=== PATIENT | male | born 1990 | race Caucasian/White ===

== ENCOUNTER 2017-03-07 09:36 | Emergency (ER) | payer OTHER ==
[~2017-03-07] VITALS: Ht 177.8 cm; Wt 105.6 kg
[2017-03-07 09:40] VITALS: TEMP 36.8; Ht 177.8 cm; Wt 105.6 kg
[2017-03-07] MEDS ORDERED: SERT-234 PO (10:13)
[2017-03-07] MEDS ORDERED: TRAZ1TAB52 PO (10:13)
[2017-03-07] MEDS ORDERED: PRAZ1CAP10 PO (10:13)
[2017-03-07] MEDS ORDERED: BUPR200T2 PO (10:13)
[2017-03-07 10:29] VITALS: BP 133/74; PULSE 78; O2SAT 97
--- NOTE | 2017-03-07 16:46 | EMERGENCY ROOM VISIT NOTE ---
History Report prepared by Javier: Lidia Figueredo Under the Supervision of: Dr. Tomas Mack M.D. First contact with patient: 10:10 Chief Complaint: OTHER COMPLAINT Stated Complaint: HALLUCINATIONS History of Present Illness The patient is a 26 year old male who presents to the Emergency Room with complaints of persistent visual hallucinations today. The patient's grandmother states that the patient has not taken his medication for the past five days stating that the patient ran out. He did, however, take his medications yesterday. She states that the patient has a history of Autism and depression, but denies any history of bipolar or schizophrenia. The patient's grandmother notes that the patient is on Trazodone, Prazosin, Zoloft, and Wellbutrin. She states that the patient called the police and said that someone was at his window and that his door was melting. The patient's grandmother notes that the police recommended that the patient is brought to the emergency department for further treatment and evaluation. She states that the patient follows with a therapist and notes that she cannot get in to stalk to her today. The patient states that he just wants his "body looked at" and wants to leave. The patient denies any drug or alcohol use. He states that he has not been sleeping for the past several days and was likely just hallucinating because of the lack of sleep. He thinks he was partially dreaming when it all happened. Source of History: patient, family (grandmother) History Limited By: poor cooperation Onset: four days Position: other (global) Quality: other (visual hallucinations) Timing: other (persistent) Note: Associated Symptoms: didn't take medication for five days. Review of Systems See HPI and ROS are limited secondary to lack of cooperation. Past Medical & Surgical Medical Problems: (1) Autism (2) Depression Family History No pertinent family history stated. Social History Smoking Status: Never Smoker Marital Status: single Housing Status: lives alone Occupation Status: unemployed Current/Historical Medications Scheduled Bupropion (Wellbutrin Sr), 200 MG PO QAM Prazosin Hcl (Prazosin), 1 MG PO HS Sertraline (Zoloft), 200 MG PO DAILY Trazodone Hcl (Desyrel), 150 MG PO HS Allergies Coded Allergies: No Known Allergies (Unverified , 03/07/17) Physical Exam Vital Signs Date Time Temp Pulse Resp B/P (MAP) Pulse Ox O2 Delivery O2 Flow Rate FiO2 03/07/17 10:29 78 18 133/74 97 03/07/17 09:40 36.8 61 18 126/56 95 Room Air Physical Exam Constitutional: Vital signs reviewed. Eyes: Pupils are equal round reactive to light. Conjunctiva are noninjected. ENT: Pharynx is clear without erythema or exudate. Mucous membranes are moist. Neck supple without meningeal signs. Respiratory: Clear to auscultation bilaterally. Breath sounds are equal bilaterally. Cardiovascular: Regular rate and rhythm. No rubs or gallops. GI: Soft, nondistended and nontender. Bowel sounds are present. Musculoskeletal: No peripheral edema. No lower extremity tenderness. Integumentary: No cyanosis. Neurological: The patient is awake and alert. Cranial nerves II-XII are intact. Motor is 5 out of 5 all extremities. Sensation is intact to light touch all extremities. Normal speech. No pronator drift. Psychiatric: Guarded affect. No pressured speech. No word salad. No neologisms. Medical Decision & Procedures ED Course 1011: The patient was evaluated in room B2. A complete history and physical exam was performed. 1018: I spoke to the patient's grandmother at this time. I discussed the treatment plan and she verbalized complete understanding and agreement. The patient is ready for discharge. Medical Decision This is a 26-year-old male who presents with visual hallucinations today. Differential diagnosis includes psychosis, insomnia, metabolic derangement, medication withdrawal. I did perform a limited focused review of portions of the patient's old chart on the electronic medical record. The patient has had no recent pertinent visits to this hospital. Blood Pressure Screening: Patient was found to have normal blood pressure on screening and does not require follow-up. Medication Reconciliation: I attest that I have personally reviewed the patient' s current medication list. I did evaluate the patient as noted above. The patient is not very cooperative. He was brought here by his grandmother because he called police due to visual hallucinations. The patient states that this was only because he has not taken his medications and has not been getting much sleep. He does not want any evaluation other than a physical exam. He denies any current hallucinations. He did restart his medications. He does have mental health issues but there is no cause for involuntary commitment for evaluation. I did explain this to the patient's grandmother and she stated that she would have them follow up with his counselor and psychiatrist. The patient was discharged in good condition. Impression Primary Impression: Visual hallucinations Additional Impression: Noncompliance with medication regimen Scribe Attestation The scribe's documentation has been prepared under my direct and personally reviewed by me in its entirety. I confirm that the note above accurately reflects all work, treatment, procedures, and medical decision making performed by me. Departure Information Dispostion Home / Self-Care Referrals No Doctor, Assigned (PCP) Forms HOME CARE DOCUMENTATION FORM, IMPORTANT VISIT INFORMATION, WORK / SCHOOL INSTRUCTIONS Patient Instructions My [facility] Additional Instructions You have been examined and treated today on an emergency basis only. This is not a substitute for, or an effort to provide, complete comprehensive medical care. It is impossible to recognize and treat all injuries or illnesses in a single emergency department visit. It is therefore important that you follow up closely with your physician and counselor/psychiatrist. Call as soon as possible for an appointment. Return for worsening symptoms or if you develop headache, thoughts of hurting yourself or others or any other concerning symptoms. Problem Qualifiers
== END 2017-03-07 10:29 | disposition home or self-care (01) ==
LOC: C.EDB 09:37
DX: R44.1 Visual hallucinations (principal); Z91.14 Patient's other noncompliance with medication regimen; F84.0 Autistic disorder; F32.9 Major depressive disorder, single episode, unspecified; Z79.899 Other long term (current) drug therapy

== ENCOUNTER 2019-09-20 22:07 | Inpatient (IN) ==
[2019-09-20 22:49] LABS: Basophils # (auto) 0.02 K/uL (0-0.2); Basophils % (auto) 0.2 %; Eosinophils % (auto) 0.9 %; Hematocrit (blood only) 43.7 % (42-52); Hemoglobin 14.8 g/dL (14.0-18.0); Immature Granulocytes # (auto) 0.03 K/uL (0.00-0.02); Immature Granulocytes % (auto) 0.3 %; Lymphocytes # (auto) 2.82 K/uL (1.2-3.4); Lymphocytes % (auto) 25.9 %; Mean Corpuscular Hemoglobin 28.8 pg (25-34); Mean Corpuscular Hgb Conc 33.9 g/dL (32-36); Mean Platelet Volume 9.9 fL (7.4-10.4); Monocytes # (auto) 0.63 K/uL (0.11-0.59); Monocytes % (auto) 5.8 %; Neutrophils # (auto) 7.29 K/uL (1.4-6.5); Neutrophils % (auto) 66.9 %; Platelet Count 383 K/uL (130-400); RDW Coefficient of Variation 14.1 % (11.5-14.5); RDW Standard Deviation 43.8 fL (36.4-46.3); Red Blood Count 5.14 M/uL (4.7-6.1); White Blood Count 10.89 K/uL (4.8-10.8)
[2019-09-20 22:59] LABS: Appearance Urine Clear (Clear); Bilirubin Urine Negative (Negative); Blood Urine Negative (Negative); Color Urine Yellow; Glucose Urine UA Negative (Negative); Ketones Urine Negative (Negative); Leukocyte Esterase Urine Negative (Negative); Nitrite Urine Negative (Negative); Protein Urine Negative (Negative); Specific Gravity Urine 1.022 (1.000-1.030); Urobilinogen Urine Negative (Negative)
[2019-09-20 23:09] LABS: Albumin Level 3.8 gm/dl (3.4-5.0); BUN Creatinine Ratio 14.4 (10-20); Calcium 9.2 mg/dl (8.5-10.1); Creatinine Clr Calc Pharmacy 141.9 ml/min; Est GFR (African American) 126.5; Est GFR (Non-African American) 109.1; Potassium 3.7 mmol/L (3.5-5.1)
[2019-09-20 23:19] LABS: Albumin Globulin Ratio 0.8 (0.9-2); Bilirubin,Total 0.4 mg/dl (0.2-1); Globulin 4.7 gm/dl (2.5-4.0); Thyroid Stimulating Hormone 1.69 uIu/ml (0.300-4.500); Total Protein 8.5 gm/dl (6.4-8.2)
[2019-09-20] MEDS ORDERED: LORazepam 1 MG TAB SL STA (23:21)
[2019-09-20 23:27] LABS: Amphetamines+Metham, Urine Pos (Neg); Barbiturates, Urine Neg (Neg); Benzodiazepine, Urine Neg (Neg); Cocaine, Urine Neg (Neg); MDMA (Ecstacy), Urine Neg (Neg); Methadone, Urine Neg (Neg); Opiate, Urine Neg (Neg); Phencyclidine, Urine Neg (Neg)
[2019-09-20 23:47] LABS: Acetaminophen < 2 ug/ml (10-30); Salicylate 4.1 mg/dl (2.8-20)
--- NOTE | 2019-09-21 03:55 | Emergency Department Note ---
Entered by Aaron Clay acting as a scribe for Ricco West MD ED Provider Note Name: Mauricio Hurst Age: 29 Arrives Via: EMS Informant: Patient CC: Mental health evaluation HPI: The patient is a 29 year old male who presents to the emergency department with a request for a mental health evaluation occurring tonight. The patient states that he was recently released from [place]. He notes that a person up the street is planning his murder, and he reports that he can barely move from his couch out of fear. The patient states that this individual is hacking his internet, and he notes that he is very paranoid and scared. He reports that he has been taking his medication as usual. The patient states that he smokes cigarettes and uses marijuana, but he notes that he has not drank alcohol in years. He reports that his mom has a history of ADD and he states that his dad has a history of hepatitis. ROS: See above HPI for pertinent positives & negatives. A total of 10 systems reviewed and were otherwise negative. Past Medical History: Depression, autism Past Surgical History: None Family History: Mother ADD, Father hepatitis Social History: Smokes cigarettes, uses marijuana, does not drink alcohol Home Medications: Zoloft, dextroamphetamine-amphetamine Allergies: None Physical: Vitals: BP 131/74, Pulse 130, Resp 20, Temp 98.4 F, O2 Sat 99 Exam: GENERAL: Patient is anxious appearing, mildly agitated. EYES: No scleral icterus, unremarkable pupils. ENT: Mucous membranes moist, no nasal congestion. NECK: No masses appreciated, no meningismus, trachea is midline. RESPIRATORY: No dyspnea. Clear to auscultation and equal bilaterally. No wheeze, no rhonchi. CARDIOVASCULAR: Regular rate and rhythm. No murmurs, rubs, gallops appreciated. GASTROINTESTINAL: Abdomen soft, non-tender, no peritonitis. Bowel sounds pos itive. No masses appreciated. BACK: No midline tenderness, no CVA tenderness EXTREMITIES: Normal motion all extremities, no cyanosis, no edema. NEUROLOGIC: Alert and oriented, no acute motor or sensory deficits, no focal weakness, cranial nerves grossly intact. SKIN: No rash, no jaundice, no diaphoresis. Psych: Anxious, agitated, depressed, states people are after him, exhibits paranoid behavior, denies SI and HI. ED Course: Prior Medical Record, Triage/Nursing Notes, Medications, Allergies reviewed by Me 2312: The patient was evaluated in room A8. A complete history and physical exam was performed. 0313: I rechecked the patient. He is sleeping. 0354: Upon reevaluation, the patient is stable. I discussed the findings and the treatment plan with the patient. He expresses agreement and understanding. The patient will be transferred to [address] [place] [address] for further management and treatment. Vital Signs: reviewed and remarkable for Tachy on arrival Labs: Reviewed and remarkable for Marijuana in Drug Urine Interventions: Ativan 1mg PO Blood pressure: Elevated - Avis to be situational. Disposition: Admitted to [address] [place] [address] Differential: Mood Disorder, Overdose, Infectious, Electrolyte Abnormality, Cardiac, Hepatic, Endocrine, Toxicologic, Neurologic, amongst other pathologies Entertained. Medical Decision Makin yr old male with long psychiatric history arrives with worsening paranoia, not caring for self and requesting admission. He is severely paranoid discussing being followed and bugged. He is exhibiting evidence of not caring for self and I agree needs inpatient admission. Given ativan to help calm him down and medically cleared. Sleeping and no issues. [address] [place] [address] came down and evaluated and accepted him to their facility. Impression: Hallucinations, acute paranoia, anxiety Ricco West MD The scribe's documentation has been prepared under my direction and personally reviewed by me in its entirety. I confirm that the note above accurately reflects all work, treatment, procedures, and medical decision making performed by me. Impression & Plan Hallucinations, Acute anxiety, Acute paranoia Past Med/Surg History Family History (Updated 09/20/19 @ 23:49 by Aaron Clay) Other Family history of attention deficit disorder Family history of hepatitis Social History (Updated 09/20/19 @ 23:49 by Aaron Clay) Preferred Language: Sammarinese Feels Safe at Home: Yes Smoking Status: Current every day smoker Tobacco Type: cigarettes ; Hx Alcohol Use: No Hx Substance Use: Yes substance use type: marijuana Results & Data Vital Signs Vital Signs - 24 hr 09/20/19 22:30 Temperature 36.9 C Temperature Source Oral Pulse Rate 82 Pulse Rhythm Regular Respiratory Rate 20 Respiratory Effort / Characteristics Non-Labored Spontaneous Respiratory Depth Normal Respiratory Pattern Regular Blood Pressure 131/74 Blood Pressure Mean 93 Blood Pressure Position Lying Pulse Oximetry 99 Oxygen Delivery Method Room Air Sepsis Recent Fever Within 48 Hours No Sepsis New/Unexplained Change in Mental Status No Sepsis Action Taken by Nursing No Action Required Home Medications Current Medication List: was personally reviewed by me Laboratory Data Attestation: I reviewed the patient's lab results. Result diagrams: 09/20/19 22:23 09/20/19 22:23 Lab Results 09/20/19 09/20/19 09/20/19 Range/Units 22:23 22:23 22:23 WBC 10.89 H (4.8-10.8) K/uL RBC 5.14 (4.7-6.1) M/uL Hgb 14.8 (14.0-18.0) g/dL Hct 43.7 (42-52) % MCV 85.0 (80-100) fL MCH 28.8 (25-34) pg MCHC 33.9 (32-36) g/dL RDW Std Deviation 43.8 (36.4-46.3) fL RDW Coeff of Chuck 14.1 (11.5-14.5) % Plt Count 383 (130-400) K/uL MPV 9.9 (7.4-10.4) fL Immature Gran % (Auto) 0.3 % Neut % (Auto) 66.9 % Lymph % (Auto) 25.9 % [place] % (Auto) 5.8 % Eos % (Auto) 0.9 % Baso % (Auto) 0.2 % Immature Gran # (Auto) 0.03 H (0.00-0.02) K/uL Neut # (Auto) 7.29 H (1.4-6.5) K/uL Lymph # (Auto) 2.82 (1.2-3.4) K/uL Callahan # (Auto) 0.63 H (0.11-0.59) K/uL Eos # (Auto) 0.10 (0-0.5) K/uL Baso # (Auto) 0.02 (0-0.2) K/uL Sodium 139 (136-145) mmol/L Potassium 3.7 (3.5-5.1) mmol/L Chloride 107 (98-107) mmol/L Carbon Dioxide 27 (21-32) mmol/L Anion Gap 5.0 (3-11) BUN 14 (7-18) mg/dl Creatinine 0.94 (0.6-1.4) mg/dl Est Cr Clr Drug Dosing 141.9 ml/min Est GFR ( Amer) 126.5 Est GFR (Non-Af Amer) 109.1 BUN/Creatinine Ratio 14.4 (10-20) Glucose 85 (70-99) mg/dl Calcium 9.2 (8.5-10.1) mg/dl Total Bilirubin 0.4 (0.2-1) mg/dl AST 12 L (15-37) U/L ALT 24 (12-78) U/L Alkaline Phosphatase 103 (45-117) U/L Total Protein 8.5 H (6.4-8.2) gm/dl Albumin 3.8 (3.4-5.0) gm/dl Globulin 4.7 H (2.5-4.0) gm/dl Albumin/Globulin Ratio 0.8 L (0.9-2) TSH 1.690 (0.300-4.500) uIu/ml Urine Color Urine Appearance (Clear) Urine pH (4.5-7.5) Ur Specific [place] (1.000-1.030) Urine Protein (Negative) Urine Glucose (UA) (Negative) Urine Ketones (Negative) Urine Blood (Negative) Urine Nitrite (Negative) Urine Bilirubin (Negative) Urine Urobilinogen (Negative) Ur Leukocyte Esterase (Negative) Salicylates 4.1 (2.8-20) mg/dl Urine Opiates Screen (Neg) Ur Methadone, Qual (Neg) Acetaminophen < 2 L (10-30) ug/ml Urine Barbiturates (Neg) Ur Phencyclidine (PCP) (Neg) U Amphetamin/Meth Scrn (Neg) MDMA (Ecstasy) Screen (Neg) U Benzodiazepines Scrn (Neg) Ur Cocaine Metabolite (Neg) U Marijuana (THC) Screen (Neg) Ethyl Alcohol mg/dL (0-3) mg/dl 09/20/19 09/20/19 09/20/19 Range/Units 22:23 22:30 22:30 WBC (4.8-10.8) K/uL RBC (4.7-6.1) M/uL Hgb (14.0-18.0) g/dL Hct (42-52) % MCV (80-100) fL MCH (25-34) pg MCHC (32-36) g/dL RDW Std Deviation (36.4-46.3) fL RDW Coeff of Chuck (11.5-14.5) % Plt Count (130-400) K/uL MPV (7.4-10.4) fL Immature Gran % (Auto) % Neut % (Auto) % Lymph % (Auto) % [place] % (Auto) % Eos % (Auto) % Baso % (Auto) % Immature Gran # (Auto) (0.00-0.02) K/uL Neut # (Auto) (1.4-6.5) K/uL Lymph # (Auto) (1.2-3.4) K/uL [place] # (Auto) (0.11-0.59) K/uL Eos # (Auto) (0-0.5) K/uL Baso # (Auto) (0-0.2) K/uL Sodium (136-145) mmol/L Potassium (3.5-5.1) mmol/L Chloride (98-107) mmol/L Carbon Dioxide (21-32) mmol/L Anion Gap (3-11) BUN (7-18) mg/dl Creatinine (0.6-1.4) mg/dl Est Cr Clr Drug Dosing ml/min Est GFR ( Amer) Est GFR (Non-Af Amer) BUN/Creatinine Ratio (10-20) Glucose (70-99) mg/dl Calcium (8.5-10.1) mg/dl Total Bilirubin (0.2-1) mg/dl AST (15-37) U/L ALT (12-78) U/L Alkaline Phosphatase (45-117) U/L Total Protein (6.4-8.2) gm/dl Albumin (3.4-5.0) gm/dl Globulin (2.5-4.0) gm/dl Albumin/Globulin Ratio (0.9-2) TSH (0.300-4.500) uIu/ml Urine Color Yellow Urine Appearance Clear (Clear) Urine pH 7.0 (4.5-7.5) Ur Specific [place] 1.022 (1.000-1.030) Urine Protein Negative (Negative) Urine Glucose (UA) Negative (Negative) Urine Ketones Negative (Negative) Urine Blood Negative (Negative) Urine Nitrite Negative (Negative) Urine Bilirubin Negative (Negative) Urine Urobilinogen Negative (Negative) Ur Leukocyte Esterase Negative (Negative) Salicylates (2.8-20) mg/dl Urine Opiates Screen Neg (Neg) Ur Methadone, Qual Neg (Neg) Acetaminophen (10-30) ug/ml Urine Barbiturates Neg (Neg) Ur Phencyclidine (PCP) Neg (Neg) U Amphetamin/Meth Scrn Pos H (Neg) MDMA (Ecstasy) Screen Neg (Neg) U Benzodiazepines Scrn Neg (Neg) Ur Cocaine Metabolite Neg (Neg) U Marijuana (THC) Screen Pos H (Neg) Ethyl Alcohol mg/dL < 3.0 (0-3) mg/dl Administered Medications Discontinued Medications Lorazepam (Ativan) 1 mg SL NOW STA Stop: 09/20/19 23:22 Last Admin: 09/20/19 23:58 Dose: 1 mg Documented by: [id number] Discharge Plan Visit Data Chief Complaint: Mental Health Evaluation Stated Complaint: [facility] ED Provider: Ricco West Discharge Problem: Hallucinations, Acute anxiety, Acute paranoia Patient Disposition: Transfer Behavioral Health Fac Discharge Instructions Interventions: ED Discharge Assessment Last Done: 09/21/19 04:04 The dayo's documentation has been prepared under my direction and personally reviewed by me in its entirety. I confirm that the note above accurately refl ects all work, treatment, procedures, and medical decision making performed by me.
[2019-09-21] MEDS ORDERED: ACETAMINOPHEN 325 MG TAB PO PRN (04:37)
[2019-09-21] MEDS ORDERED: SODIUM CHLORIDE 0.65% NA SOLN 45 ML (OCEAN) PRN (04:37)
[2019-09-21] MEDS ORDERED: MAGNESIUM HYDROXIDE SUSP 30 ML UDC PO PRN (04:37)
[2019-09-21] MEDS ORDERED: ALUMINUM/MAGNESIUM SUSP 30 ML UDC PO PRN (04:37)
[2019-09-21] MEDS ORDERED: BISMUTH SUBSALICYLATE PER ML OMNICELL CHARGE PO PRN (04:37)
[2019-09-21] MEDS ORDERED: NICOTINE POLACRILEX 2 MG GUM MT PRN (04:38)
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
[2019-09-21] MEDS ORDERED: OLANZapine 5 MG TABLET PO SCH (09:00)
[2019-09-21] MEDS: NICOTINE 14 MG/24 HR PATCH TD SCH (10:34)
[2019-09-21] MEDS: cloNIDine HCL 0.1 MG TAB PO SCH ×3 (10:34→21:22)
[2019-09-21] MEDS: DIVALPROEX DELAY RELEASE 500 MG TAB PO SCH ×2 (12:59→21:21)
[2019-09-21] MEDS ORDERED: haloperidoL 5 MG TAB PO PRN (13:05)
[2019-09-21] MEDS ORDERED: BENZTROPINE MESYLATE 1 MG TAB PO PRN (13:05)
[2019-09-21] MEDS: OLANZapine 5 MG TABLET PO SCH ×2 (17:33→21:22)
[2019-09-22 08:22] LABS: Glucose Fasting 100 mg/dl (70-99)
[2019-09-22 08:28] LABS: Chol HDL Ratio 5; Cholesterol 188 mg/dl (0-200); HDL Cholesterol 36 mg/dl; LDL Cholesterol Calculated 122 mg/dl; Triglycerides 152 mg/dl (0-150); VLDL Cholesterol 30 mg/dl
[2019-09-22] MEDS: DIVALPROEX DELAY RELEASE 500 MG TAB PO SCH ×2 (09:29→21:13)
[2019-09-22] MEDS: cloNIDine HCL 0.1 MG TAB PO SCH ×3 (09:29→21:13)
[2019-09-22] MEDS: NICOTINE 14 MG/24 HR PATCH TD SCH (09:30)
[2019-09-22] MEDS: OLANZapine 5 MG TABLET PO SCH ×3 (09:30→21:14)
--- NOTE | 2019-09-22 12:19 | Psychiatric Progress Note ---
Date of Service September 22, 2019 Impression / Recommendations Impression 29-year-old single male who lives alone in [place], has a history of mental health treatment since about age 12, with numerous past diagnoses including persistent depression, bipolar disorder, psychosis NOS, cannabis abuse, PTSD, ADHD, intellectual disability, and autism spectrum disorder, who has had 3 [id number] hospitalizations at [facility] over the past 2 months and presented to our ER last night by EMS floridly psychotic and fearful that people were stalking and trying to kill him. He states he has been taking medication since his last discharge from [facility] 2 weeks ago (olanzapine, Depakote, and clonidine), although Depakote level was not obtained in the ER to verify this. Depakote level was obtained this morning, and was subtherapeutic at 34. Pt was agreeable with titrating his Depakote to 500mg qAM and 1000mg qHS. The remainder of his home medications have been continued. He reports smoking marijuana and methamphetamine and UDS was positive for both. He lacks insight into his symptoms and believes he is in danger outside of the hospital as others are plotting against him. He remains irritable, but is a bit more cooperative with the assessment. We will need to get collateral information from family members and involve his outpatient supports and treatment providers, as this is his fourth hospitalization in 2 months. Inpatient treatment is medically necessary due to the severity of his symptoms, inability to provide for his own basic needs including health, safety, and nutrition without the care and assistance of others. (1) Psychosis: 09/21 -psychosis NOS. Differential includes primary thought disorder, substance-induced psychosis, and mood disorder with psychosis. -Continue voluntary inpatient treatment, every 15 minute checks for safety. -Encourage participation in groups and therapy. Work on healthy coping skills and discharge safety plan. -Continue medications (just filled on 09/06/[address] Lamb, presumably on discharge from [facility]): clonidine 0.1 mg twice daily at 0900 and 1400 and 0.2 mg at bedtime, and Depakote 500 mg twice daily. Increase olanzapine to 5 mg twice daily and 15 mg at bedtime to target psychosis. -Order Depakote trough level and cholesterol panel/fasting glucose for tomorrow for monitoring on an atypical antipsychotic. -Order haloperidol 5 mg as needed for psychosis, and benztropine 1 mg as needed for EPS. -Hold trazodone as patient reports it was ineffective and he was not taking it. -Expand database with information from family and dependency case manager (has 3 - Neisha, Priscila Amezcua, and CARLOS ALBERTO). -Records reviewed from recent hospitalization at [facility], and outpatient PA at [facility]. -Patient was apparently transitioning to see a physicians clinical nursing assistant at [facility]; wi ll coordinate care with them. -Due to multiple recent hospitalizations, his insurance company is requesting a treatment team meeting. May be beneficial to involve his rep payee as well, whom he states is assigned to the [facility]. 09/22 - Pt agreeable with titration of Depakote to 500mg qAM and 1000mg qHS. Continue remainder of medication regimen unchanged - He continues to verbalize delusional thought content related to individuals hacking his internet and security system - Fasting labs drawn this AM - fasting glucose is mildly elevated at 100; triglycerides are mildly elevated at 152. Other values are WNL - Depakote trough ordered, level was subtherapeutic at 34 (although reliability of medication compliance prior to admission is questioned) (2) Methamphetamine abuse: 09/21 -UDS positive, follow-up on confirmatory results. Patient smoking methamphetamine, which is likely contributing to his psychotic symptoms. He was seen in our ER last month prior to going to [facility], and drug screen was positive for amphetamines, but not methamphetamines. In general stimulants should be avoided due to the risk of worsening his psychosis. (3) Cannabis abuse: 09/21 -patient unable to tolerate intervention/psychoeducation about the risks of substance use due to his psychosis and irritability. We will continue to provide education about the risks of substance use, recommendations for abstinence, and need for substance abuse treatment. -Recovery protocol. (4) Autism: 09/21 -clarify diagnosis/services with outpatient community case manager (5) Idiopathic mild intellectual disability: 09/21 -involve outpatient dependency case manager Inventory Assets Strengths: Has lots of services, was willing to come into the hospital Needs: Abstinence from substances, adherence with outpatient treatment Risk Factors Assessment Male: Yes : Yes Do You Have Access To A Gun?: No Health Problems: No Mental Health Diagnoses: Yes Substance Use Disorders: Yes Previous Attempt: No Previous Psychiatric Hospitalization: Yes Smoker: No Protective Factors Assessment : No Responsible for Young Children: No Employed: No Stable Relationships: No Supportive Family: Yes Interval History Identifying Information RENO OTOOLE is a 29-year-old M who currently lives in [place] alone, has a history of mild ID, autism spectrum disorder, psychosis NOS, persistent depression, PTSD, ADHD, and substance abuse, and was admitted on 09/21/19 03:47 on a 201 voluntary commitment for paranoid delusions. Chief Complaint "I just want you to know that people were hacking my internet and the security system at my house." Review of Systems Notes Constitutional: reports "mental fatigue" Cardiovascular: denied Respiratory: denied Gastrointestinal: denied Neurological: denied Psychiatric: denies symptoms other than stated above Total of at least 10 systems reviewed, pertinent positives as above and in HPI. Sleep Information Total Hours of Sleep: 7.25 Sleep Comments: . Meal Information Percent Meal Consumed - Breakfast: 100 Percent Meal Consumed - Dinner: 100 Nutrition Comment: per meal log Subjective Subjective Patient was seen & assessed and interval progress reviewed with nursing and social work. Staff reports the patient continues to be largely paranoid and anxious. He spent most of the day yesterday in his room. He is scheduled to have a visit from his general community case manager this afternoon, and is scheduled for an intake for blended case management services this morning. Patient was seen today to assess progress since admission. He provides verbal consent to allow Lilia Nunez PA-C to observe today's interaction. He continues to verbalize thoughts that an individual named Colby Caldwell has been hacking into his Internet and security system. He informs this provider that the individual was released from group home about 1 to 2 weeks ago, he had "started to harass me immediately after he got out." Patient gives specific information regarding the ways that this individual and "the [place]hnaz[place]" interact with each other and are trying to harm him. Patient states that he has been experiencing "mental fatigue" since this time due to "having to constantly change my passwords." Patient denies suicidal ideation, but does admit he is frustrated with what this individual has been doing. Reality testing was not attempted, as patient is clearly convinced that this is occurring to him. Results of valproic acid level and fasting labs were reviewed with the patient. He is agreeable with titration of Depakote, as his level is presently subtherapeutic. He maintains that he has been compliant with his medications prior to his hospitalization. Pt denies other needs or concerns at this time. Physical Exam Psychiatric Orientation: alert and + guarded (only superficially cooperative) Apperance: appropriately dressed (casually, in tight t-shirt and shorts) and + disheveled (longhair, standing on-end) Eye Contact: good eye contact Motor Behavior: steady gait and station and no abnormal motor movements Speech: normal rate/rhythm/volume of speech Affect: + irritable affect Mood: + anxious mood and + irritable mood Thought Process: + perseveration and + concrete thought process Thought Content: + paranoid, + delusions and + persecution Suicidal Thoughts: denies suicidal thoughts and denies suicidal intent Homicidal Thoughts: denies homicidal thoughts Hallucinations: no auditory hallucinations and no visual hallucinations Cognition: language grossly intact Estimated Intelligence: + below average estimated intelligence Insight: + severely impaired insight Judgement: + severely impaired judgement Vital Signs (Past 24 Hours) Last Vital Signs Temp 36.4 C L 09/22/19 06:35 Pulse 65 09/22/19 06:37 Resp 18 09/22/19 06:35 BP 156/89 H 09/22/19 06:37 Pulse Ox 98 09/21/19 04:04 Results & Data Laboratory Results Laboratory Results - last 24 hr 09/22/19 09/22/19 07:44 07:44 Fasting Glucose 100 H Triglycerides 152 H Cholesterol 188 LDL Cholesterol, Calc 122 VLDL Cholesterol, Calc 30 HDL Cholesterol 36 Cholesterol/HDL Ratio 5 Valproic Acid 34 L Current Inpatient Medications Current Inpatient Medications: Current Inpatient Medications Acetaminophen (Tylenol) 650 mg PO Q4H PRN PRN Reason: Headache or Minor Fever Stop: 10/21/19 04:36 Al Hydrox/Mg Hydrox/Simethicone (Maalox) 30 ml PO Q4H PRN PRN Reason: GI Upset Stop: 10/21/19 04:36 Benztropine Mesylate (Cogentin) 1 mg PO Q1H PRN PRN Reason: EPS Stop: 10/21/19 13:04 Bismuth Subsalicylate (Kaopectate) 15 ml PO PRN PRN PRN Reason: Loose Stool Stop: 10/21/19 04:36 Clonidine HCl (Catapres) 0.1 mg PO BID@0900,1400 KAMI Stop: 10/21/19 08:59 Last Admin: 09/22/19 09:29 Dose: 0.1 mg Documented by: Clonidine HCl (Catapres) 0.2 mg PO HS [facility] Stop: 10/21/19 21:59 Last Admin: 09/21/19 21:22 Dose: 0.2 mg Documented by: Divalproex Sodium (Depakote Delay Release) 500 mg PO BID [facility] Stop: 10/21/19 11:44 Last Admin: 09/22/19 09:29 Dose: 500 mg Documented by: Haloperidol (Haldol) 5 mg PO Q4H PRN PRN Reason: psychosis Stop: 10/21/19 13:04 Hydroxyzine HCl (Vistaril) 50 mg PO HSZ PRN PRN Reason: Insomnia Stop: 10/21/19 04:36 Hydroxyzine HCl (Vistaril) 25 mg PO Q4H PRN PRN Reason: Anxiety Stop: 10/21/19 04:36 Magnesium Hydroxide (Milk Of Magnesia) 30 ml PO DAILY PRN PRN Reason: Constipation Stop: 10/21/19 04:36 Miscellaneous (Remove Nicoderm Patch) 1 ea N/A DAILY@0859 [facility] Stop: 10/21/19 08:58 Last Admin: 09/22/19 09:30 Dose: 1 ea Documented by: Nicotine (Nicoderm Cq) 14 mg TD QAM [facility] Stop: 10/21/19 08:59 Last Admin: 09/22/19 09:30 Dose: 14 mg Documented by: Nicotine Polacrilex (Nicorette 2mg) 1 piece MT Q2H PRN PRN Reason: Nicotine withdrawal Stop: 10/21/19 04:37 Olanzapine (Zyprexa) 15 mg PO HS [facility] Stop: 10/21/19 21:59 Last Admin: 09/21/19 21:22 Dose: 15 mg Documented by: Olanzapine (Zyprexa) 5 mg PO BID17 [facility] Stop: 10/21/19 16:59 Last Admin: 09/22/19 09:30 Dose: 5 mg Documented by: Sodium Chloride (Shreve Nasal) 1 - 2 sprays NA PRN PRN PRN Reason: Nasal Dryness/Congestion Stop: 10/21/19 04:36 Mental Health & Subst Abuse Tx Psychiatrist Name of Psychiatrist: [facility] [employer] [facility] Psychiatrist's Date of Appointment with Psychiatrist: 10/10/19 Time of Appointment with Psychiatrist: 1:00 p.m. Psychiatric Appointment Comment: [address] [facility], [place], [place] Healthcare Administrator Name of Healthcare Administrator: [employer] Phone Number for Healthcare Administrator: [phone] Case Management Appointment Comment: ID CM - Nusrat Bullock; BSU referral - Lauren Gillette Post Discharge Appointments Primary Care Physician Name Of Family Doctor: Neisha - Dr. Saad Mcdowell Primary Care Provider Appointment Comment: [address] [facility] [place] [address] Partial or Psych Rehab Name of Partial or Psych Rehab: [facility] Phone Number of Partial or Psych Rehab: [phone] Partial or Psych Rehab Appointment Comment: [address] [facility], [address], [place] [address] Other #1: Name of Aftercare Appointment: Neisha [place] Phone Number of Aftercare Appointment: Aftercare Appointment Comment: [address] [facility], [place] [address] #2: Name of Aftercare Appointment: Support Coordination Meeting for the Autism Waiver Date of Aftercare Appointment: 10/06/19 Time of Aftercare Appointment: 10:00 a.m. Aftercare Appointment Comment: Nusrat will provide transportation for this meeting Contact Information Discharge Address: [address] [place] [address]
[2019-09-23 08:56] LABS: Amphetamine Urine, Confirm 1560 ng/mL (<250); Marijuana Quant, GCMS Urine 2390 ng/mL (<5); Methamphetamine, Ur Confirm 14500 ng/mL (<250)
[2019-09-23] MEDS: DIVALPROEX DELAY RELEASE 500 MG TAB PO SCH ×2 (09:08→21:27)
[2019-09-23] MEDS: cloNIDine HCL 0.1 MG TAB PO SCH ×3 (09:09→21:29)
[2019-09-23] MEDS: NICOTINE 14 MG/24 HR PATCH TD SCH (09:09)
[2019-09-23] MEDS: OLANZapine 5 MG TABLET PO SCH ×3 (09:10→21:29)
--- NOTE | 2019-09-23 11:52 | Psychiatric Progress Note ---
Date of Service September 23, 2019 Impression / Recommendations Impression 29-year-old single male who lives alone in [place], has a history of mental health treatment since about age 12, with numerous past diagnoses including persistent depression, bipolar disorder, psychosis NOS, cannabis abuse, PTSD, ADHD, intellectual disability, and autism spectrum disorder, who has had 3 [id number] hospitalizations at [facility] over the past 2 months and presented to our ER last night by EMS floridly psychotic and fearful that people were stalking and trying to kill him. He states he has been taking medication since his last discharge from [facility] 2 weeks ago (olanzapine, Depakote, and clonidine), although Depakote level was not obtained in the ER to verify this. Depakote level was obtained this morning, and was subtherapeutic at 34. Pt was agreeable with titrating his Depakote to 500mg qAM and 1000mg qHS. The remainder of his home medications have been continued. He reports smoking marijuana and methamphetamine and UDS was positive for both. He lacks insight into his symptoms and believes he is in danger outside of the hospital as others are plotting against him. He remains irritable, but is a bit more cooperative with the assessment. We will need to get collateral information from family members and involve his outpatient supports and treatment providers, as this is his fourth hospitalization in 2 months. Inpatient treatment is medically necessary due to the severity of his symptoms, inability to provide for his own basic needs including health, safety, and nutrition without the care and assistance of others. (1) Psychosis: 09/21 -psychosis NOS. Differential includes primary thought disorder, substance-induced psychosis, and mood disorder with psychosis. -Continue voluntary inpatient treatment, every 15 minute checks for safety. -Encourage participation in groups and therapy. Work on healthy coping skills and discharge safety plan. -Continue medications (just filled on 09/06/[address] Lamb, presumably on discharge from [facility]): clonidine 0.1 mg twice daily at 0900 and 1400 and 0.2 mg at bedtime, and Depakote 500 mg twice daily. Increase olanzapine to 5 mg twice daily and 15 mg at bedtime to target psychosis. -Order Depakote trough level and cholesterol panel/fasting glucose for tomorrow for monitoring on an atypical antipsychotic. -Order haloperidol 5 mg as needed for psychosis, and benztropine 1 mg as needed for EPS. -Hold trazodone as patient reports it was ineffective and he was not taking it. -Expand database with information from family and nurse case manager (has 3 - Neisha, Priscila Amezcua, and CARLOS ALBERTO). -Records reviewed from recent hospitalization at [facility], and outpatient PA at [facility]. -Patient was apparently transitioning to see a physicians human resources benefits assistant at [facility]; wi ll coordinate care with them. -Due to multiple recent hospitalizations, his insurance company is requesting a treatment team meeting. May be beneficial to involve his rep payee as well, whom he states is assigned to the [facility]. 09/22 - Pt agreeable with titration of Depakote to 500mg qAM and 1000mg qHS. Continue remainder of medication regimen unchanged - He continues to verbalize delusional thought content related to individuals hacking his internet and security system - Fasting labs drawn this AM - fasting glucose is mildly elevated at 100; triglycerides are mildly elevated at 152. Other values are WNL - Depakote trough ordered, level was subtherapeutic at 34 (although reliability of medication compliance prior to admission is questioned) 09/23 - Continue current medication regimen; will order repeat Depakote level morning of 09/26 - Pt continues to verbalize delusional thought content, though feels safe in the hospital. It is reported that patient has these delusions at baseline; however, he will have limited supports over the weekend and we are still awaiting responses on numerous referrals to coordinate increase outpatient monitoring - Pt has been referred for [facility], [facility], an outpatient therapist, and for a blended casework supervisor (2) Methamphetamine abuse: 09/21 -UDS positive, follow-up on confirmatory results. Patient smoking methamphetamine, which is likely contributing to his psychotic symptoms. He was seen in our ER last month prior to going to [facility], and drug screen was positive for amphetamines, but not methamphetamines. In general stimulants should be avoided due to the risk of worsening his psychosis. (3) Cannabis abuse: 09/21 -patient unable to tolerate intervention/psychoeducation about the risks of substance use due to his psychosis and irritability. We will continue to provide education about the risks of substance use, recommendations for abstinence, and need for substance abuse treatment. -Recovery protocol. (4) Autism: 09/21 -clarify diagnosis/services with outpatient casework supervisor (5) Idiopathic mild intellectual disability: 09/21 -involve outpatient nurse case manager Inventory Assets Strengths: Has lots of services, was willing to come into the hospital Needs: Abstinence from substances, adherence with outpatient treatment Risk Factors Assessment Male: Yes : Yes Do You Have Access To A Gun?: No Health Problems: No Mental Health Diagnoses: Yes Substance Use Disorders: Yes Previous Attempt: No Previous Psychiatric Hospitalization: Yes Smoker: No Protective Factors Assessment : No Responsible for Young Children: No Employed: No Stable Relationships: No Supportive Family: Yes Interval History Identifying Information RENO OTOOLE is a 29-year-old M who currently lives in [place] alone, has a history of mild ID, autism spectrum disorder, psychosis NOS, persistent depression, PTSD, ADHD, and substance abuse, and was admitted on 09/21/19 03:47 on a 201 voluntary commitment for paranoid delusions. Chief Complaint "Group? Well, it was pretty much a waste of time." Review of Systems Notes Constitutional: denied Cardiovascular: denied Respiratory: denied Gastrointestinal: denied Neurological: denied Psychiatric: denies symptoms other than stated above Total of at least 10 systems reviewed, pertinent positives as above and in HPI. Sleep Information Total Hours of Sleep: 8.75 Sleep Comments: . Meal Information Percent Meal Consumed - Breakfast: 100 Percent Meal Consumed - Lunch: 100 Percent Meal Consumed - Dinner: 100 Nutrition Comment: per meal log Subjective Subjective Patient was seen & assessed and interval progress reviewed with treatment team. Staff reports the patient had several meetings with outpatient psychiatric supports yesterday. He largely isolated in his room in between these meetings, but did attend community meeting rating his mood a 7/10 and stating he felt "okay." Patient was seen today to assess progress since admission. Encounter occurred after patient abruptly left group therapy and went to his room. Patient was offered to go speak in the office, but declined stating "just started saying what ever you have to say." Patient was asked how group went, to which he stated "it was pretty much a waste of time." Patient was unable to recall the topic for the group stating "I do not remember." Patient denies safety concerns here within the hospital, and remains willing for increased outpatient supports at the time of discharge. According to the patient, he feels as though he is ready to return home; however, is understanding of recommendations for increased services in order to prevent ongoing rapid re- hospitalizations. Patient denied concerns with remaining in the hospital until additional information can be determined from multiple referrals made. He states "it is cool, just let me know my release date." Patient was encouraged to continue to attend group programming, and focus on developing healthy coping strategies. He denies any concerns related to medication adjustments made yesterday. He denies suicidal or homicidal ideation at this time. Patient remains delusional, stating the only reason that he is not being closely monitored by "[facility] [place]" is that "I can't use my cell phone here." Pt denied other needs or concerns from staff at this time. Physical Exam Psychiatric Orientation: alert and + guarded ( limited engagement in interview) Apperance: + disheveled wearing tight t-shirt and gym shorts Eye Contact: + poor eye contact (no effort made for direct eye contact) Motor Behavior: steady gait and station and no abnormal motor movements Speech: normal rate/rhythm/volume of speech (only brief reponses to questions) Affect: + flat affect and + irritable affect Mood: no depressed mood ("I'm fine") Thought Process: + perseveration Thought Content: + paranoid, + delusions and + persecution Suicidal Thoughts: denies suicidal thoughts and denies suicidal intent Homicidal Thoughts: denies homicidal thoughts Hallucinations: no auditory hallucinations and no visual hallucinations Insight: + impaired insight (though likely chronic ) Judgement: + impaired judgement Vital Signs (Past 24 Hours) Last Vital Signs Temp 36.3 C L 09/23/19 06:00 Pulse 86 09/23/19 09:28 Resp 18 09/23/19 06:00 BP 127/62 09/23/19 09:28 Pulse Ox 98 09/21/19 04:04 Results & Data Laboratory Results Laboratory Results - last 24 hr 09/20/19 22:30 U Amphetamines Confirm 1560 H U Methamphetamin Confrm 81874 H U Marijuana THC Carboxy 2390 H Drug Screen Comment SEE NOTE Current Inpatient Medications Current Inpatient Medications: Current Inpatient Medications Acetaminophen (Tylenol) 650 mg PO Q4H PRN PRN Reason: Headache or Minor Fever Stop: 10/21/19 04:36 Al Hydrox/Mg Hydrox/Simethicone (Maalox) 30 ml PO Q4H PRN PRN Reason: GI Upset Stop: 10/21/19 04:36 Benztropine Mesylate (Cogentin) 1 mg PO Q1H PRN PRN Reason: EPS Stop: 10/21/19 13:04 Bismuth Subsalicylate (Kaopectate) 15 ml PO PRN PRN PRN Reason: Loose Stool Stop: 10/21/19 04:36 Clonidine HCl (Catapres) 0.1 mg PO BID@0900,1400 [facility] Stop: 10/21/19 08:59 Last Admin: 09/23/19 09:09 Dose: 0.1 mg Documented by: Clonidine HCl (Catapres) 0.2 mg PO [facility] Stop: 10/21/19 21:59 Last Admin: 09/22/19 21:13 Dose: Not Given Documented by: Divalproex Sodium (Depakote Delay Release) 500 mg PO QAM [facility] Stop: 10/23/19 08:59 Last Admin: 09/23/19 09:08 Dose: 500 mg Documented by: Divalproex Sodium (Depakote Delay Release) 1,000 mg PO [facility] Stop: 10/22/19 21:59 Last Admin: 09/22/19 21:13 Dose: 1,000 mg Documented by: Haloperidol (Haldol) 5 mg PO Q4H PRN PRN Reason: psychosis Stop: 10/21/19 13:04 Hydroxyzine HCl (Vistaril) 50 mg PO HSZ PRN PRN Reason: Insomnia Stop: 10/21/19 04:36 Hydroxyzine HCl (Vistaril) 25 mg PO Q4H PRN PRN Reason: Anxiety Stop: 10/21/19 04:36 Magnesium Hydroxide (Milk Of Magnesia) 30 ml PO DAILY PRN PRN Reason: Constipation Stop: 10/21/19 04:36 Miscellaneous (Remove Nicoderm Patch) 1 ea N/A DAILY@0859 [facility] Stop: 10/21/19 08:58 Last Admin: 09/23/19 09:09 Dose: 1 ea Documented by: Nicotine (Nicoderm Cq) 14 mg TD QAM [facility] Stop: 10/21/19 08:59 Last Admin: 09/23/19 09:09 Dose: 14 mg Documented by: Nicotine Polacrilex (Nicorette 2mg) 1 piece MT Q2H PRN PRN Reason: Nicotine withdrawal Stop: 10/21/19 04:37 Olanzapine (Zyprexa) 15 mg PO HS [facility] Stop: 10/21/19 21:59 Last Admin: 09/22/19 21:14 Dose: 15 mg Documented by: Olanzapine (Zyprexa) 5 mg PO BID17 [facility] Stop: 10/21/19 16:59 Last Admin: 09/23/19 09:10 Dose: 5 mg Documented by: Sodium Chloride (Mccreary Nasal) 1 - 2 sprays NA PRN PRN PRN Reason: Nasal Dryness/Congestion Stop: 10/21/19 04:36 Mental Health & Subst Abuse Tx Psychiatrist Name of Psychiatrist: [facility] Psychiatrist's Date of Appointment with Psychiatrist: 10/10/19 Time of Appointment with Psychiatrist: 1:00 p.m. Psychiatric Appointment Comment: [address] [facility] [place] Therapist Name of Therapist: [facility] Therapist's Therapy Appointment Comment: [address] [facility] Reservations Agent Name of Reservations Agent: [employer] Phone Number for Reservations Agent: [phone] Case Management Appointment Comment: [facility] CM - Nusrat Bullock; [facility] referral - aLuren [facility] Post Discharge Appointments Primary Care Physician Name Of Family Doctor: Neisha - Dr. Saad Mcdowell Primary Care Provider Appointment Comment: [address] [place] [address] Partial or Psych Rehab Name of Partial or Psych Rehab: [facility] Phone Number of Partial or Psych Rehab: [phone] Time of Appointment at Partial or Psych Rehab: Referral sent and received on 09/23 Partial or Psych Rehab Appointment Comment: [address] [facility], [address], [place] [address] Other #1: Name of Aftercare Appointment: Neisha Davis Phone Number of Aftercare Appointment: Aftercare Appointment Comment: [address] [facility], [place] [address] #2: Name of Aftercare Appointment: Support Coordination Meeting for the Autism Waiver Date of Aftercare Appointment: 10/06/19 Time of Aftercare Appointment: 10:00 a.m. Aftercare Appointment Comment: Nusrat will provide transportation for this meeting #3: Name of Aftercare Appointment: [facility] Phone Number of Aftercare Appointment: [phone] Time of Aftercare Appointment: Referral faxed on 09/23 Aftercare Appointment Comment: [address] [place] [address] Contact Information Discharge Address: [address] [place] [address], [address] [address]
[2019-09-24] MEDS: OLANZapine 5 MG TABLET PO SCH ×3 (09:52→21:12)
[2019-09-24] MEDS: DIVALPROEX DELAY RELEASE 500 MG TAB PO SCH ×2 (09:52→21:11)
[2019-09-24] MEDS: cloNIDine HCL 0.1 MG TAB PO SCH ×3 (09:52→21:10)
[2019-09-24] MEDS: NICOTINE 14 MG/24 HR PATCH TD SCH (09:57)
--- NOTE | 2019-09-24 10:47 | Psychiatric Progress Note ---
Date of Service September 24, 2019 Impression / Recommendations Impression 29-year-old single male who lives alone in [place], has a history of mental health treatment since about age 12, with numerous past diagnoses including persistent depression, bipolar disorder, psychosis NOS, cannabis abuse, PTSD, ADHD, intellectual disability, and autism spectrum disorder, who has had 3 [id number] hospitalizations at [facility] over the past 2 months and presented to our ER last night by EMS floridly psychotic and fearful that people were stalking and trying to kill him. He states he has been taking medication since his last discharge from [facility] 2 weeks ago (olanzapine, Depakote, and clonidine), although Depakote level was not obtained in the ER to verify this. Depakote level was when obtained was subtherapeutic at 34. Pt was agreeable with titrating his Depakote to 500mg qAM and 1000mg qHS. The remainder of his home medications have been continued. He reports smoking marijuana and methamphetamine and UDS was positive for both. (1) Psychosis: 09/21 -psychosis NOS. Differential includes primary thought disorder, substance-induced psychosis, and mood disorder with psychosis. -Continue voluntary inpatient treatment, every 15 minute checks for safety. -Encourage participation in groups and therapy. Work on healthy coping skills and discharge safety plan. -Continue medications (just filled on 09/06/[address] Lamb, presumably on discharge from [facility]): clonidine 0.1 mg twice daily at 0900 and 1400 and 0.2 mg at bedtime, and Depakote 500 mg twice daily. Increase olanzapine to 5 mg twice daily and 15 mg at bedtime to target psychosis. -Order Depakote trough level and cholesterol panel/fasting glucose for tomorrow for monitoring on an atypical antipsychotic. -Order haloperidol 5 mg as needed for psychosis, and benztropine 1 mg as needed for EPS. -Hold trazodone as patient reports it was ineffective and he was not taking it. -Expand database with information from family and case manager (has 3 - Grace dominique, Priscila Amezcua, and CARLOS ALBERTO). -Records reviewed from recent hospitalization at [facility], and outpatient PA at [facility]. -Patient was apparently transitioning to see a physicians technical assistant at [facility]; will coordinate care with them. -Due to multiple recent hospitalizations, his insurance company is requesting a treatment team meeting. May be beneficial to involve his rep payee as well, whom he states is assigned to the [facility]. 09/22 - Pt agreeable with titration of Depakote to 500mg qAM and 1000mg qHS. Continue remainder of medication regimen unchanged - He continues to verbalize delusional thought content related to individuals hacking his internet and security system - Fasting labs drawn this AM - fasting glucose is mildly elevated at 100; triglycerides are mildly elevated at 152. Other values are WNL - Depakote trough ordered, level was subtherapeutic at 34 (although reliability of medication compliance prior to admission is questioned) 09/23 - Continue current medication regimen; will order repeat Depakote level morning of 09/26 - Pt continues to verbalize delusional thought content, though feels safe in the hospital. It is reported that patient has these delusions at baseline; however, he will have limited supports over the weekend and we are still awaiting responses on numerous referrals to coordinate increase outpatient monitoring - Pt has been referred for [facility], [facility], an outpatient therapist, and for a blended nurse case manager (2) Methamphetamine abuse: 09/21 -UDS positive, follow-up on confirmatory results. Patient smoking methamphetamine, which is likely contributing to his psychotic symptoms. He was seen in our ER last month prior to going to [facility], and drug screen was positive for amphetamines, but not methamphetamines. In general stimulants should be avoided due to the risk of worsening his psychosis. (3) Cannabis abuse: 09/21 -patient unable to tolerate intervention/psychoeducation about the risks of substance use due to his psychosis and irritability. We will continue to provide education about the risks of substance use, recommendations for abstinence, and need for substance abuse treatment. -Recovery protocol. (4) Autism: 09/21 -clarify diagnosis/services with outpatient nurse case manager (5) Idiopathic mild intellectual disability: 09/21 -involve outpatient case manager Inventory Assets Strengths: Has lots of services, was willing to come into the hospital Needs: Abstinence from substances, adherence with outpatient treatment Risk Factors Assessment Male: Yes : Yes Do You Have Access To A Gun?: No Health Problems: No Mental Health Diagnoses: Yes Substance Use Disorders: Yes Previous Attempt: No Previous Psychiatric Hospitalization: Yes Smoker: No Protective Factors Assessment : No Responsible for Young Children: No Employed: No Stable Relationships: No Supportive Family: Yes Interval History Identifying Information RENO OTOOLE is a 29-year-old M who currently lives in [place] alone, has a history of mild ID, autism spectrum disorder, psychosis NOS, persistent depression, PTSD, ADHD, and substance abuse, and was admitted on 09/21/19 03:47 on a 201 voluntary commitment for paranoid delusions. Chief Complaint "I want to go home, I don't have those thoughts anymore". Review of Systems Sleep Information Total Hours of Sleep: 7.0 Sleep Comments: . Meal Information Percent Meal Consumed - Breakfast: 100 Percent Meal Consumed - Lunch: 100 Percent Meal Consumed - Dinner: 100 Nutrition Comment: per meal log Subjective Subjective Patient was seen & assessed and interval progress reviewed with nursing. brief period of upset yesterday when he was not discharged, prn Vistaril effective. He is tolerating medication changes. It was felt he may decompensate over the weekend without structured support as multiple new services starting. Physical Exam Mental Examination The patient presented as alert and cooperative. The patient was casually dressed and groomed. Eye contact was fair. No psychomotor restlessness or agitation was noted. Speech was normal in rate, rhythm, and volume. Affect was tired. The patients mood was a bit irritable. Thought processes were concrete without evidence of loose associations or flight of ideas. Thought content/perception was reality based without delusions. The patient denied suicidal and homicidal ideation. The patient denied hallucinations and did not appear to be responding to internal stimuli. Cognition was grossly intact with orientation to person, place and time. Fund of Knowledge/Intelligence were consistent with level of education. Insight and Judgement were limited. Vital Signs (Past 24 Hours) Last Vital Signs Temp 36.4 C L 09/24/19 06:00 Pulse 70 09/24/19 06:00 Resp 18 09/24/19 06:00 BP 112/73 09/24/19 06:45 Pulse Ox 98 09/21/19 04:04 Results & Data Current Inpatient Medications Current Inpatient Medications: Current Inpatient Medications Acetaminophen (Tylenol) 650 mg PO Q4H PRN PRN Reason: Headache or Minor Fever Stop: 10/21/19 04:36 Al Hydrox/Mg Hydrox/Simethicone (Maalox) 30 ml PO Q4H PRN PRN Reason: GI Upset Stop: 10/21/19 04:36 Benztropine Mesylate (Cogentin) 1 mg PO Q1H PRN PRN Reason: EPS Stop: 10/21/19 13:04 Bismuth Subsalicylate (Kaopectate) 15 ml PO PRN PRN PRN Reason: Loose Stool Stop: 10/21/19 04:36 Clonidine HCl (Catapres) 0.1 mg PO BID@0900,1400 [facility] Stop: 10/21/19 08:59 Last Admin: 09/24/19 09:52 Dose: 0.1 mg Documented by: Clonidine HCl (Catapres) 0.2 mg PO [facility] Stop: 10/21/19 21:59 Last Admin: 09/23/19 21:29 Dose: 0.2 mg Documented by: Divalproex Sodium (Depakote Delay Release) 500 mg PO QAM [facility] Stop: 10/23/19 08:59 Last Admin: 09/24/19 09:52 Dose: 500 mg Documented by: Divalproex Sodium (Depakote Delay Release) 1,000 mg PO [facility] Stop: 10/22/19 21:59 Last Admin: 09/23/19 21:27 Dose: 1,000 mg Documented by: Haloperidol (Haldol) 5 mg PO Q4H PRN PRN Reason: psychosis Stop: 10/21/19 13:04 Hydroxyzine HCl (Vistaril) 50 mg PO HSZ PRN PRN Reason: Insomnia Stop: 10/21/19 04:36 Hydroxyzine HCl (Vistaril) 25 mg PO Q4H PRN PRN Reason: Anxiety Stop: 10/21/19 04:36 Last Admin: 09/23/19 15:50 Dose: 25 mg Documented by: Magnesium Hydroxide (Milk Of Magnesia) 30 ml PO DAILY PRN PRN Reason: Constipation Stop: 10/21/19 04:36 Miscellaneous (Remove Nicoderm Patch) 1 ea N/A DAILY@0859 [facility] Stop: 10/21/19 08:58 Last Admin: 09/24/19 09:56 Dose: 1 ea Documented by: Nicotine ([facility]oderm Cq) [facility] Stop: 10/21/19 08:59 Last Admin: 09/24/19 09:57 Dose: 14 mg Documented by: Nicotine Polacrilex (Nicorette 2mg) 1 piece MT Q2H PRN PRN Reason: Nicotine withdrawal Stop: 10/21/19 04:37 Olanzapine (Zyprexa) 15 mg PO HS [facility] Stop: 10/21/19 21:59 Last Admin: 09/23/19 21:29 Dose: 15 mg Documented by: Olanzapine (Zyprexa) 5 mg PO BID17 [facility] Stop: 10/21/19 16:59 Last Admin: 09/24/19 09:52 Dose: 5 mg Documented by: Sodium Chloride ([place] Nasal) 1 - 2 sprays NA PRN PRN PRN Reason: Nasal Dryness/Congestion Stop: 10/21/19 04:36 Mental Health & Subst Abuse Tx Psychiatrist Name of Psychiatrist: [facility] Psychiatrist's Date of Appointment with Psychiatrist: 10/10/19 Time of Appointment with Psychiatrist: 1:00 p.m. Psychiatric Appointment Comment: [id number] [facility], [place] Therapist Name of Therapist: . Therapist's Phone Number: . Therapy Appointment Comment: . Meteorologist In Charge Name of Meteorologist In Charge: [facility] - Lauren Gillette Phone Number for Meteorologist In Charge: [phone] Date of Appointment with Meteorologist In Charge: 09/28/19 Time of Appointment with Meteorologist In Charge: 10:30 a.m. Case Management Appointment Comment: ID CM - Nusrat Bullock; BSU referral - Lauren Gillette Post Discharge Appointments Primary Care Physician Name Of Family Doctor: Neisha Mcdowell Primary Care Provider Appointment Comment: [address] [facility], [place], [facility], [place] [address] Partial or Psych Rehab Name of Partial or Psych Rehab: [facility] Phone Number of Partial or Psych Rehab: [phone] Time of Appointment at Partial or Psych Rehab: Referral sent and received on 09/23 Partial or Psych Rehab Appointment Comment: [address], [address], [place] [address] Contact Information Discharge Address: [address], [place] [address]
[2019-09-25] MEDS: cloNIDine HCL 0.1 MG TAB PO SCH (09:31)
[2019-09-25] MEDS: OLANZapine 5 MG TABLET PO SCH (09:31)
[2019-09-25] MEDS: DIVALPROEX DELAY RELEASE 500 MG TAB PO SCH (09:31)
[2019-09-25] MEDS: NICOTINE 14 MG/24 HR PATCH TD SCH (09:37)
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
[2019-09-25] MEDS ORDERED: DESTROY THIS MEDICATION ONE (10:44)
== END 2019-09-25 11:30 | disposition home or self-care (01) | DRG 885 ==
LOC: ED 22:07 → 3S 09-21 03:47